=== PATIENT | male | born 1950 ===

== ENCOUNTER 2018-04-03 13:15 | Emergency (ER) | payer MEDICARE ==
[2018-04-03 13:32] VITALS: RESP 18; TEMP 98; O2SAT 96
[2018-04-03] MEDS ORDERED: Silver Nitrate Topical - Stick TOP ONE (13:44)
--- NOTE | 2018-04-03 13:49 | ED PDOC ---
HPI: General Adult Time Seen by Provider: 04/03/18 13:36 Chief Complaint (Nursing): ENT Problem Chief Complaint (Provider): ENT Problem History Per: Patient History/Exam Limitations: no limitations Onset/Duration Of Symptoms: Days (x 3) Current Symptoms Are (Timing): Still Present Additional Complaint(s): 68 year old male presents to the ED with a nose bleed from left nares for the last three days. Patient takes aspirin daily. Denies trauma and other medical complaints. PMD: Dr. Zacarias Past Medical History Reviewed: Historical Data, Nursing Documentation, Vital Signs Vital Signs: Last Vital Signs Temp 98.0 F 04/03/18 13:30 Pulse 60 04/03/18 13:30 Resp 18 04/03/18 13:30 BP 157/91 H 04/03/18 13:30 Pulse Ox 96 04/03/18 13:30 - Medical History PMH: No Chronic Diseases - Surgical History Surgical History: No Surg Hx - Family History Family History: States: Unknown Family Hx - Allergies Allergies/Adverse Reactions: Allergies Allergy/AdvReac Type Severity Reaction Status Date / Time No Known Allergies Allergy Verified 04/03/18 13:30 Review of Systems ROS Statement: Except As Marked, All Systems Reviewed And Found Negative ENT: Positive for: Other (nose bleed from left nares) Physical Exam - Reviewed Nursing Documentation Reviewed: Yes Vital Signs Reviewed: Yes - Physical Exam Appears: Positive for: Non-toxic, No Acute Distress Head Exam: Positive for: ATRAUMATIC, NORMAL INSPECTION, NORMOCEPHALIC Skin: Positive for: Normal Color, Warm, Dry Eye Exam: Positive for: EOMI, Normal appearance, PERRL ENT: Positive for: Other (minimal oozing from left nares anteriorly) Cardiovascular/Chest: Positive for: Regular Rate, Rhythm Respiratory: Positive for: CNT, Normal Breath Sounds Neurologic/Psych: Positive for: Alert, Oriented. Negative for: Motor/Sensory Deficits - ECG O2 Sat by Pulse Oximetry: 96 (RA) Pulse Ox Interpretation: Normal - Progress Re-evaluation Time: 14:03 Condition: Improved (No bleeding after cauterization and placement of Rhinocort. Will have pt f/u with ENT) Medical Decision Making Medical Decision Makin:45 Impression: nose bleed Initial Plan: --Silver nitrate stick Scribe Attestation: Documented by Brianna Castañeda acting as a scribe for Yayo Anglin MD Provider Scribe Attestation: All medical record entries made by the Scribe were at my direction and personally dictated by me. I have reviewed the chart and agree that the record accurately reflects my personal performance of the history, physical exam, medical decision making, and the department course for this patient. I have also personally directed, reviewed, and agree with the discharge instructions and disposition. Disposition - Clinical Impression Clinical Impression: Nosebleed, symptom - Patient ED Disposition Is Patient to be Admitted: No Counseled Patient/Family Regarding: Diagnosis, Need For Followup - Disposition Referrals: Bari Cobian MD [Staff Provider] - Disposition: Routine/Home Disposition Time: 14:03 Condition: FAIR Instructions: Nosebleeds Forms: [facility] (Swedish) Print Language: URDU
[2018-04-03 14:16] VITALS: BP 145/89; PULSE 85
== END 2018-04-03 14:34 | disposition home or self-care (01) ==
LOC: H.ER 13:15
DX: R04.0 Epistaxis (principal)

== ENCOUNTER 2018-04-05 06:59 | Emergency (ER) | payer MEDICARE ==
[2018-04-05 07:15] VITALS: O2SAT 98
[2018-04-05] MEDS ORDERED: Phenylephrine 0.5% Nasal Spray NAS PRN (07:15)
--- NOTE | 2018-04-05 07:20 | ED PDOC ---
HPI: Nose Bleed Time Seen by Provider: 04/05/18 07:01 Chief Complaint (Nursing): ENT Problem Chief Complaint (Provider): nose bleed History Per: Patient History/Exam Limitations: no limitations Onset/Duration Of Symptoms: Hrs (this morning) Current Symptoms Are (Timing): Still Present Location Of Bleeding: Left Nare Additional Complaint(s): Kristopher Davila is a 68 year old male, with a past medical history of HTN and diabetes, who presents to the emergency department complaining of a nose bleed to left nare onset since this morning. Patient was seen here x2 days ago for the same and had it cauterized and packed. Patient followed up with ENT specialist who removed packing with no new bleeding. However, patient reports he started bleeding again this morning and denies any trauma. No further medical complaints. PMD: Wyatt Zacarias Past Medical History Reviewed: Historical Data, Nursing Documentation, Vital Signs Vital Signs: Last Vital Signs Temp 98.2 F 04/05/18 07:12 Pulse 74 04/05/18 07:12 Resp 20 04/05/18 07:12 BP 186/96 H 04/05/18 07:12 Pulse Ox 98 04/05/18 07:12 - Medical History PMH: Diabetes, HTN - Surgical History Surgical History: No Surg Hx - Family History Family History: States: Unknown Family Hx - Allergies Allergies/Adverse Reactions: Allergies Allergy/AdvReac Type Severity Reaction Status Date / Time No Known Allergies Allergy Verified 04/05/18 07:12 Review of Systems ROS Statement: Except As Marked, All Systems Reviewed And Found Negative ENT: Positive for: Nose Discharge (nose bleed) Physical Exam - Reviewed Nursing Documentation Reviewed: Yes Vital Signs Reviewed: Yes - Physical Exam Appears: Positive for: No Acute Distress Head Exam: Positive for: ATRAUMATIC, NORMAL INSPECTION, NORMOCEPHALIC Skin: Positive for: Normal Color, Warm, Dry Eye Exam: Positive for: Normal appearance, EOMI, PERRL ENT: Positive for: Other (Left nare minimal oozing anteriorly. Nose expanding hematoma. Skin no ecchymosis or petechiae) Neck: Positive for: Normal, Painless ROM Cardiovascular/Chest: Positive for: Regular Rate, Rhythm. Negative for: Murmur Respiratory: Positive for: Normal Breath Sounds. Negative for: Respiratory Distress Extremity: Positive for: Normal ROM (upper and lower extremities). Negative for: Deformity Neurologic/Psych: Positive for: Alert, Oriented - ECG O2 Sat by Pulse Oximetry: 98 (RA) Pulse Ox Interpretation: Normal - Progress Re-evaluation Time: 08:52 Condition: Improved (No further bleeding) Medical Decision Making Medical Decision Making: Time: 07:01 Initial impression: Epistaxis Initial plan: --Brayan-synephrine 0.5% Nasal [place] 1 spry NAKUL --Reevaluation Scribe Attestation: Documented by Christopher Sloan, acting as a scribe for Yayo Paulino MD. Provider Scribe Attestation: All medical record entries made by the Scribe were at my direction and personally dictated by me. I have reviewed the chart and agree that the record accurately reflects my personal performance of the history, physical exam, m edical decision making, and the department course for this patient. I have also personally directed, reviewed, and agree with the discharge instructions and disposition. Disposition - Clinical Impression Clinical Impression: Nosebleed, symptom - Patient ED Disposition Is Patient to be Admitted: No - Disposition Referrals: Bari Cobian MD [Staff Provider] - Disposition: Routine/Home Disposition Time: 08:53 Condition: FAIR Instructions: Nosebleeds Forms: [employer] (Macedonian) Print Language: KOREAN
[2018-04-05] MEDS ORDERED: Silver Nitrate Topical - Stick TOP ONE (08:01)
[2018-04-05 09:16] VITALS: BP 160/84; PULSE 67; RESP 19; TEMP 97
== END 2018-04-05 09:17 | disposition home or self-care (01) ==
LOC: H.ER 06:59
DX: R04.0 Epistaxis (principal); E11.9 Type 2 diabetes mellitus without complications; I10 Essential (primary) hypertension